=== PATIENT | female | born 1980 | race American Indian/Alaskan Native ===

== ENCOUNTER 2016-07-09 08:35 | Emergency (ER) | payer SELFPAY ==
[2016-07-09 09:38] LABS: Chloride 99.7 mmol/L (98-107); Potassium 3.3 mmol/L (3.6-5.0); Sodium 135 mmol/L (137-145)
[2016-07-09 09:39] LABS: Anion Gap 18 mmol/L; BUN/Creatinine Ratio 8.33; Blood Urea Nitrogen 5 mg/dL (7-17); Calcium 9.1 mg/dL (8.4-10.2); Carbon Dioxide 21 mmol/L (22-30); Glucose 92 mg/dL (65-100)
--- NOTE | 2016-07-09 09:48 | Emergency Department Report ---
Entered by KENNEY WAYNE, acting as scribe for EMILY FREEMAN PA. Chief Complaint: Dizziness Stated Complaint: X 4 WKS/FEVER/DIZZINESS/VOMITING Time Seen by Provider: 07/09/16 09:14 - HPI History of Present Illness: Patient that is 6 weeks presents to the ED c/o fever, vomiting, dizziness, nausea, and back pain. Denies vaginal bleeding, discharge, and abdominal pain. . 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 - ROS Review of Systems: All system are negative unless stated in HPI above. - Exam Vital Signs: Vital Signs 07/09/16 08:54 Temperature 98.5 F Pulse Rate 112 H Respiratory 20 Rate Blood Pressure 138/88 O2 Sat by Pulse 100 Oximetry Physical Exam: General: well nourished, well deverloped, nontoxic in appearance, in no acute distress Abdomen: soft, nontender, nondistended. No guarding. No rebound. Back: no CVA tenderness MSE screening note: Focused history and physical exam performed. Due to findings the following was ordered: ED Medical Decision Making - Lab Data Result diagrams: 07/09/16 09:03 - Medical Decision Making Medical decision making: Patient seen by provider in triage area. Appropriate protocol activated and patient to main ED to be seen by physician. ED Disposition for MSE Condition: Stable This documentation as recorded by the scribe,KENNEY WAYNE,accurately reflects the service I personally performed and the decisions made by ,EMILY FREEMAN PA.
[2016-07-09 09:49] LABS: Basophils % (Auto) 0.3 % (0.0-1.8); Eosinophils % (Auto) 0.4 % (0.0-4.3); Hematocrit 35.4 % (30.3-42.9); Hemoglobin 11.2 gm/dl (10.1-14.3); Mean Corpuscular HGB Conc 32 % (30-34); Mean Corpuscular Volume 77 fl (79-97); Platelet Count 354 K/mm3 (140-440); Red Blood Count 4.62 M/mm3 (3.65-5.03); White Blood Count 7.6 K/mm3 (4.5-11.0)
[2016-07-09 09:54] LABS: Mean Corpuscular Hemoglobin 24 pg (28-32)
[2016-07-09 10:00] LABS: Bacteria,Urine 1+ /HPF (Negative); Bilirubin,Urine NEG (Negative); Blood,Urine NEG (Negative); Ketones,Urine TR mg/dL (Negative); Leukocyte Esterase,Urine TR (Negative); Mucus,Urine 3+ /HPF; Nitrite,Urine NEG (Negative)
[2016-07-09] MEDS ORDERED: NACL 0.9% 1000 ML 1,000 ML IV ONE (10:21)
[2016-07-09] MEDS ORDERED: ZOFRAN IV ONE (10:21)
--- NOTE | 2016-07-09 11:07 | Emergency Department Report ---
HPI - General Chief Complaint: Nausea/Vomiting/Diarrhea Time Seen by Provider: 07/09/16 09:14 - HPI HPI: She is a 36-year-old female 6 para 5004 currently at 6 weeks and 5 days based on last menstrual period of 05/23/2016 with a VIOLET of 2016. Patient states for the past one week she has been having daily morning nausea vomiting with no appetite for food. Patient states it is ago she began to get intermittent dizziness at night. Patient denies any dizziness today. Vision admits frequent urination. She denies fevers/chills/abdominal pain/vaginal discharge such vaginal bleeding/ headache/blurred vision. ED Past Medical Hx - Past Medical History Previous Medical History?: Yes Additional medical history: Vaginal delivery x 5 - Surgical History Past Surgical History?: No - Social History Smoking Status: Never Smoker Substance Use Type: None - Medications Home Medications: Home Medications Medication Instructions Recorded Confirmed Last Taken Type Doxylamine/Pyridoxine HCl 2 each PO QHS #30 tablet. 07/09/16 Unknown Rx [Manjula Jasso 10-10 mg Tablet] Nitrofurantoin Morris/M-Cryst 100 mg PO Q12HR #14 capsule 07/09/16 Unknown Rx [Macrobid CAP] Pnv95/Ferrous Fumarate/FA 1 each PO DAILY #30 tablet 07/09/16 Unknown Rx [ Formula Tablet] ED Review of Systems ROS: Stated complaint: X 4 WKS/FEVER/DIZZINESS/VOMITING Other details as noted in HPI Constitutional: denies: chills, fever Eyes: denies: eye pain, eye discharge, vision change ENT: denies: ear pain, throat pain, dental pain, hearing loss Respiratory: denies: cough, shortness of breath, wheezing Cardiovascular: denies: chest pain, palpitations Endocrine: no symptoms reported Gastrointestinal: nausea, vomiting. denies: abdominal pain, diarrhea Genitourinary: frequency. denies: urgency, dysuria, hematuria, discharge Musculoskeletal: denies: back pain, joint swelling, arthralgia Skin: denies: rash, lesions Neurological: denies: headache, weakness, numbness, paresthesias Psychiatric: denies: anxiety, depression Hematological/Lymphatic: denies: easy bleeding, easy bruising Physical Exam - Physical Exam Vital Signs: Vital Signs 07/09/16 08:54 Temperature 98.5 F Pulse Rate 112 H Respiratory 20 Rate Blood Pressure 138/88 O2 Sat by Pulse 100 Oximetry Physical Exam: GENERAL: Alert and oriented x3, no apparent distress, Normal Gait, atraumatic. HEAD: Head is normocephalic and a-traumatic. EYES: Extra ocular muscles are intact. Pupils are equal, round, and reactive to light and accommodation. EARS: symetrical, atraumatic, non tender, ear canal clear and moderate cerumen, tympanic membrance non inflamed. gross auditory nml bilaterally. NECK: Supple. Non edematous, No carotid bruits. No lymphadenopathy or thyromegaly. No C-spine tenderness LUNGS: Symetrical with respiration, No wheezing, no rales or crackles, CTAB. HEART: S1, S2 present, regular rate and rhythm without murmur, no rubs, no gallops. ABDOMEN: No organomegaly was noted,Positive bowel sounds, soft, and non- distended. . Nontender to palpation on all Quadrants, NO CVA tenderness. NEUROLOGIC: No focal Deficit, Cranial nerves II through XII are grossly intact. No loss of sensation, PSYCHIATRIC: Mood is congruent with affect, denies suicidal or homicidal ideations. SKIN: Warm and dry, No lesions, No ulceration or induration present. ED Course Vital Signs 07/09/16 08:54 Temperature 98.5 F Pulse Rate 112 H Respiratory 20 Rate Blood Pressure 138/88 O2 Sat by Pulse 100 Oximetry ED Medical Decision Making - Lab Data Result diagrams: 07/09/16 09:03 07/09/16 09:03 - Medical Decision Making 36-year-old female with positive with urinary tract infection ED course: Patient received 1 L of normal saline with Zofran. CBC normal limit, BMP shows low BUN/creatinine and mildly low sodium and chloride. Urinalysis shows positive bacteria suggestive for UTI Beta Quant level 53,000+. Ultrasound not required as patient denies pelvic pain abdominal pain or any vaginal bleed. Discussed findings with patient. She reports feeling much better. Vital signs stable. Vital signs returned to normal Discussed with patient daily vitamins and Diclegis for nausea. Discussed the patient referral for SHOWER DOORS AND PANELS FABRICATOR for visit. Patient states she will follow-up for care. She is in no acute or respiratory distress. Critical care attestation.: If time is entered above; I have spent that time in minutes in the direct care of this critically ill patient, excluding procedure time. ED Disposition Clinical Impression: UTI (urinary tract infection) in in first trimester, Nausea and vomiting during Disposition: DISCHARGED TO HOME OR SELFCARE Is pt being admited?: No Does the pt Need Aspirin: No Condition: Stable Instructions: Morning Sickness (ED), (ED), Urinary Tract Infection in Women (ED), Regular Diet (ED) Additional Instructions: Increase her water intake to 8-10 glasses per day. eat small frequent meals periodically throughout the day. take daily vitamins and dad clenches for nausea. despite no appetite patient should eat 3-5 daily Follow-up with curtain inspector as referred Prescriptions: Doxylamine/Pyridoxine HCl [Manjula Jasso 10-10 mg Tablet] 2 each PO QHS #30 tablet. Nitrofurantoin Morris/M-Cryst [Macrobid CAP] 100 mg PO Q12HR #14 capsule Pnv95/Ferrous Fumarate/FA [ Formula Tablet] 1 each PO DAILY #30 tablet Referrals: PRIMARY CAREMD [Primary Care Provider] - 3-5 Days MYESHA NARANJO MD [Referring] - 3-5 Days BRANDON ACEVES MD [Referring] - 3-5 Days [facility] [Outside] - 3-5 Days [facility] [Outside] - 3-5 Days Forms: Work/School Release Form(ED)
[2016-07-09 12:05] VITALS: BP 99/62
== END 2016-07-09 12:57 | disposition home or self-care (01) ==
LOC: ED 08:35
DX: O23.41 Unspecified infection of urinary tract in pregnancy, first trimester (principal); O21.9 Vomiting of pregnancy, unspecified; R11.0 Nausea; Z3A.01 Less than 8 weeks gestation of pregnancy
CPT/HCPCS: 36415; 80048; 81001; 81025; 84702; 85025; 93005; 93010; 96361; 96374; 99283; J2405; J7030

== ENCOUNTER 2017-03-19 09:02 | Emergency (ER) | payer OTHER ==
[2017-03-19 09:11] VITALS: BP 124/88
--- NOTE | 2017-03-19 18:03 | Emergency Department Report ---
- General Chief Complaint: Laceration/Recheck/Suture Stated Complaint: POST OP INCISION OPEN Time Seen by Provider: 03/19/17 17:49 Source: patient Mode of arrival: Ambulatory Limitations: No Limitations - History of Present Illness Initial Comments: Patient with on 02/26/17 and reportedly was initially on antibiotics. She finish antibiotics last but the incision site has been open for the last 2 weeks but the drainage has had a bad odor for 2 days. No nausea or vomiting. No abdominal pain. No fevers. Has not been dizzy or light-headed. Dr. Herman is her TOWER OBSERVER. -: Gradual, days(s) (2) Location: abdomen Place: home Context: other (Post-op from ) Associated Symptoms: none, other (drainage with odor) - Related Data Previous Rx's Medication Instructions Recorded Last Taken Type Doxylamine Succinate/Vit B6 2 each PO QHS #30 tablet. 07/09/16 Unknown Rx [Diclegis Dr 10-10 mg Tablet] Nitrofurantoin White/M-Cryst 100 mg PO Q12HR #14 capsule 07/09/16 Unknown Rx [Macrobid CAP] Pnv No.95/Ferrous Fum/Folic AC 1 each PO DAILY #30 tablet 07/09/16 Unknown Rx [ Formula Tablet] Cephalexin [Keflex] 500 mg PO Q8HR 10 Days #30 cap 03/19/17 Unknown Rx Allergies Allergy/AdvReac Type Severity Reaction Status Date / Time No Known Allergies Allergy Unverified 07/09/16 08:54 ED Review of Systems ROS: Stated complaint: POST OP INCISION OPEN Other details as noted in HPI Constitutional: denies: chills, fever Eyes: denies: eye pain, eye discharge, vision change ENT: denies: ear pain, throat pain Respiratory: denies: cough, shortness of breath, wheezing Cardiovascular: denies: chest pain, palpitations Endocrine: no symptoms reported Gastrointestinal: denies: abdominal pain, nausea, diarrhea Genitourinary: denies: urgency, dysuria, discharge Musculoskeletal: denies: back pain, joint swelling, arthralgia Skin: denies: rash, lesions Neurological: denies: headache, weakness, paresthesias Psychiatric: denies: anxiety, depression Hematological/Lymphatic: denies: easy bleeding, easy bruising ED Past Medical Hx - Past Medical History Previous Medical History?: No Additional medical history: Vaginal delivery x 5 - Surgical History Past Surgical History?: Yes Additional Surgical History: c section 2017 - Social History Smoking Status: Never Smoker Substance Use Type: None - Medications Home Medications: Home Medications Medication Instructions Recorded Confirmed Last Taken Type Doxylamine Succinate/Vit B6 2 each PO QHS #30 tablet. 07/09/16 Unknown Rx [Diclegis Dr 10-10 mg Tablet] Nitrofurantoin White/M-Cryst 100 mg PO Q12HR #14 capsule 07/09/16 Unknown Rx [Macrobid CAP] Pnv No.95/Ferrous Fum/Folic AC 1 each PO DAILY #30 tablet 07/09/16 Unknown Rx [ Formula Tablet] Cephalexin [Keflex] 500 mg PO Q8HR 10 Days #30 cap 03/19/17 Unknown Rx ED Physical Exam - General Limitations: No Limitations General appearance: alert, in no apparent distress - Head Head exam: Present: atraumatic, normocephalic - Eye Eye exam: Present: normal appearance - ENT ENT exam: Present: mucous membranes moist - Neck Neck exam: Present: normal inspection - Respiratory Respiratory exam: Present: normal lung sounds bilaterally. Absent: respiratory distress - Cardiovascular Cardiovascular Exam: Present: regular rate, normal rhythm. Absent: systolic murmur, diastolic murmur, rubs, gallop - GI/Abdominal GI/Abdominal exam: Present: soft (Non-tender. ), normal bowel sounds - Extremities Exam Extremities exam: Present: normal inspection - Back Exam Back exam: Present: normal inspection - Neurological Exam Neurological exam: Present: alert, oriented X3 - Psychiatric Psychiatric exam: Present: normal affect, normal mood - Skin Skin exam: Present: warm, dry, intact, normal color, other (Open incision site in the middle 1 cm and right lateral 2 cm with good granulation tissue and no erythema. drainage was minimal and serous but there was a bad odor from wound.) . Absent: rash ED Course Vital Signs 03/19/17 09:06 Temperature 98.6 F Pulse Rate 92 H Respiratory 16 Rate Blood Pressure 124/88 O2 Sat by Pulse 99 Oximetry ED Medical Decision Making - Medical Decision Making Patient with post-op incision site wound but does not appear to be significantly infected. Will do keflex with the foul odor and she will follow up with Dr. Herman. Critical care attestation.: If time is entered above; I have spent that time in minutes in the direct care of this critically ill patient, excluding procedure time. ED Disposition Clinical Impression: Cellulitis, abdominal wall Disposition: DC-01 TO HOME OR SELFCARE Is pt being admited?: No Does the pt Need Aspirin: No Condition: Stable Instructions: Cellulitis (ED) Prescriptions: Cephalexin [Keflex] 500 mg PO Q8HR 10 Days #30 cap Referrals: LUCIA HERMAN MD [Staff Physician] - 3-5 Days Time of Disposition: 18:12
== END 2017-03-19 18:15 | disposition home or self-care (01) ==
LOC: ED 09:02
DX: L03.311 Cellulitis of abdominal wall (principal)
CPT/HCPCS: 99281

== ENCOUNTER 2017-03-25 08:24 | Outpatient (CLI) | payer OTHER ==
--- NOTE | 2017-03-25 14:10 | Cat Scan Report ---
FINAL REPORT EXAM: CT ABDOMEN PELVIS W CON HISTORY: ENCOUNTER FOR PLANNED POST OP WOUND CLOSURE TECHNIQUE: CT of the abdomen and pelvis was performed with intravenous contrast. Subsequently, CT of the abdomen and pelvis was performed in the delayed phase. Reconstructions were included in the coronal and sagittal planes. PRIORS: None. FINDINGS: Lower thorax: The lung bases are clear. The visualized portions of the heart are normal. Liver: The liver is normal in attenuation. No intrahepatic biliary duct dilation. No focal hepatic lesions. Gallbladder/ biliary system: Cholelithiasis is seen. No gallbladder wall thickening or pericholecystic fluid. The common bile duct appears nondilated. Spleen: No splenic lesions are seen. Pancreas: No pancreatic lesions are seen. No pancreatic duct dilation. Kidneys: No renal masses, cysts or hydronephrosis. No renal or ureteral calcifications. Adrenal glands: 1.4 centimeter nonspecific left adrenal gland lesion is seen. No right adrenal lesions. Vasculature: The abdominal aorta is nondilated. Lymph nodes: No enlarged lymph nodes are seen in the abdomen or pelvis. Bowel, mesentery, peritoneum: No bowel obstruction. No free fluid or free air. The appendix is normal. No colonic diverticulosis. No bowel wall thickening. Urinary bladder: No filling defects are seen. Pelvis: The uterus appears mildly enlarged. Fluid is seen within the endometrial canal. Abdominal wall: There is a focal fluid collection with peripheral enhancement in the subcutaneous tissues along anterior aspect of the pelvis measuring 10.0 centimeters transverse by 1.4 centimeters AP by 4.6 centimeters craniocaudal. No intra-abdominal extension is seen. Bones: Degenerative changes are seen in the spine. IMPRESSION: 1. Abscess in the subcutaneous tissues of the anterior aspect of the pelvis, likely in the region of a incision. 2. Nonspecific left adrenal lesion should be further evaluated with dedicated adrenal CT or MRI. 3. Cholelithiasis.
== END 2017-03-25 08:25 | disposition home or self-care (01) ==
LOC: CT 08:24
PROVIDERS: ATTEND Obstetrics & Gynecology
DX: Z48.1 Encounter for planned postprocedural wound closure (principal); K80.20 Calculus of gallbladder without cholecystitis without obstruction; L02.818 Cutaneous abscess of other sites; E27.8 Other specified disorders of adrenal gland; M47.899 Other spondylosis, site unspecified; Z90.710 Acquired absence of both cervix and uterus
CPT/HCPCS: 74177; Q9967

== ENCOUNTER 2017-04-08 09:39 | Outpatient (CLI) | payer OTHER ==
[2017-04-08] MEDS ORDERED: XYLOCAINE TOPICAL 4% TP ONE (10:39)
== END 2017-04-08 09:40 | disposition home or self-care (01) ==
LOC: WOUND 09:39
PROVIDERS: ATTEND Internal Medicine
DX: T81.89XA Other complications of procedures, not elsewhere classified, initial encounter (principal); E66.01 Morbid (severe) obesity due to excess calories; Z68.41 Body mass index [BMI] 40.0-44.9, adult; Y83.8 Other surgical procedures as the cause of abnormal reaction of the patient, or of later complication, without mention of misadventure at the time of the procedure; Y92.89 Other specified places as the place of occurrence of the external cause
CPT/HCPCS: 99215; G0463

== ENCOUNTER 2017-04-08 11:43 | Emergency (ER) | payer SELFPAY ==
[2017-04-08 12:10] VITALS: BP 139/94
[2017-04-08] MEDS ORDERED: NACL 0.9% 1000 ML 1,000 ML IV ONE (13:16)
[2017-04-08 13:45] LABS: Basophils # (Auto) 0.1 K/mm3 (0.0-0.1); Basophils % (Auto) 0.9 % (0.0-1.8); Eosinophils # (Auto) 0.1 K/mm3 (0.0-0.4); Eosinophils % (Auto) 1.2 % (0.0-4.3); Hematocrit 36.1 % (30.3-42.9); Hemoglobin 11.9 gm/dl (10.1-14.3); Lymphocytes # (Auto) 2.6 K/mm3 (1.2-5.4); Lymphocytes % (Auto) 37.3 % (13.4-35.0); Mean Corpuscular HGB Conc 33 % (30-34); Mean Corpuscular Volume 77 fl (79-97); Monocytes # (Auto) 0.5 K/mm3 (0.0-0.8); Monocytes % (Auto) 7.8 % (0.0-7.3); Platelet Count 272 K/mm3 (140-440); Red Blood Count 4.67 M/mm3 (3.65-5.03)
[2017-04-08 13:56] LABS: INR 0.89 (0.87-1.13)
[2017-04-08 13:57] LABS: Mean Corpuscular Hemoglobin 26 pg (28-32)
--- NOTE | 2017-04-08 13:58 | XRay Report ---
AP CHEST: HISTORY: Fever, sepsis AP view of the chest demonstrates a normal mediastinal and cardiac contour with clear lungs and normal bony and soft tissue structures. IMPRESSION: Unremarkable AP chest.
[2017-04-08 14:07] LABS: Alanine Aminotransferase 20 units/L (7-56); Albumin 4.4 g/dL (3.9-5); BUN/Creatinine Ratio 25; Blood Urea Nitrogen 15 mg/dL (7-17); Calcium 9.5 mg/dL (8.4-10.2); Hemolysis Index 2; Lipase 19 units/L (13-60)
[2017-04-08 14:28] LABS: Bilirubin,Direct < 0.2 mg/dL (0-0.2)
--- NOTE | 2017-04-08 15:08 | Cat Scan Report ---
CT ABDOMEN PELVIS WITH CONTRAST: HISTORY: Intra-abdominal abscess. COMPARISON: 03/25/17. TECHNIQUE: Helical CT in 1.25mm intervals following IV contrast. Sagittal and coronal reconstructions. FINDINGS: Lung bases: Normal. Liver: Normal. Biliary system: Multiple gallstones are identified within the gallbladder. No biliary dilatation or inflammation. Pancreas: Normal. Spleen: Normal. Kidneys/ureters/bladder: Normal. Adrenal glands: Normal. Aorta: Normal. Intestines: Normal. Appendix: Normal. Pelvic viscera: Normal. Ascites: None. Adenopathy: None. Musculoskeletal: The fluid collection in the anterior pelvic wall has decreased by at least 75% in size and measures 6 cm transverse and 0.8 cm AP and contains trace gas on today's exam. No new fluid collection is appreciated. No intra-abdominal component. IMPRESSION: The fluid collection in the anterior pelvic wall has improved significantly since 03/25/17. Cholelithiasis..
[2017-04-08] MEDS: ZOSYN/NS 4.5GM/100ML 4.5 GM/100 ML VIAL IV ONE (15:22)
--- NOTE | 2017-04-08 18:09 | Emergency Department Report ---
ED General Adult HPI - General Chief complaint: Skin/Abscess/Foreign Body Stated complaint: ABCESS Time Seen by Provider: 04/08/17 13:09 Source: patient Mode of arrival: Ambulatory Limitations: No Limitations - History of Present Illness Initial comments: Patient was sent to the emergency department for evaluation for possible surgical drainage of a pelvic wall abscess status post . She is an ordinary patient of Dr. Bucky Herman. A patient of the wound care clinic. She reports to me that she has had no recent fever or chills. Eyes not entirely sure why care nurse decided that "patient had the abscess and needs to go to surgery.". Dr. Herman did not call to advise this case. According to the triage surgeon tried to directly admit the patient but no beds were available. The wound has very dressed by the nurse. Patient had a CT of her abdomen and pelvis on 03/25/2017 which showed an abscess in the subcutaneous tissues of the anterior aspect of the pelvis with no intra-abdominal fluid collection. She has incidental cholelithiasis. The patient herself is not complaining of pain, fever or chills. She has no other systemic symptoms. She does not complain of abdominal pain nor nausea or vomiting. Her was in February. -: week(s) Treatments Prior to Arrival: other (above-described) - Related Data Previous Rx's Medication Instructions Recorded Last Taken Type Sulfamethoxazole/Trimethoprim 1 each PO BID #20 tablet 04/08/17 Unknown Rx [Bactrim DS TAB] Allergies Allergy/AdvReac Type Severity Reaction Status Date / Time No Known Allergies Allergy Verified 04/08/17 12:07 ED Review of Systems ROS: Stated complaint: ABCESS Other details as noted in HPI Constitutional: denies: chills, fever Eyes: denies: eye pain, eye discharge, vision change ENT: denies: ear pain, throat pain Respiratory: denies: cough, shortness of breath, wheezing Cardiovascular: denies: chest pain, palpitations Endocrine: no symptoms reported Gastrointestinal: denies: abdominal pain, nausea, diarrhea Genitourinary: denies: urgency, dysuria, discharge Musculoskeletal: denies: back pain, joint swelling, arthralgia Skin: denies: rash, lesions Neurological: denies: headache, weakness, paresthesias Psychiatric: denies: anxiety, depression Hematological/Lymphatic: denies: easy bleeding, easy bruising ED Past Medical Hx - Past Medical History Previous Medical History?: No Additional medical history: Vaginal delivery x 5 - Surgical History Additional Surgical History: c section 2017 - Social History Smoking Status: Never Smoker Substance Use Type: None - Medications Home Medications: Home Medications Medication Instructions Recorded Confirmed Last Taken Type Sulfamethoxazole/Trimethoprim 1 each PO BID #20 tablet 04/08/17 Unknown Rx [Bactrim DS TAB] ED Physical Exam - General Limitations: No Limitations General appearance: alert, in no apparent distress - Head Head exam: Present: atraumatic, normocephalic - Eye Eye exam: Present: normal appearance - ENT ENT exam: Present: mucous membranes moist - Neck Neck exam: Present: normal inspection - Respiratory Respiratory exam: Present: normal lung sounds bilaterally. Absent: respiratory distress - Cardiovascular Cardiovascular Exam: Present: regular rate, normal rhythm. Absent: systolic murmur, diastolic murmur, rubs, gallop - GI/Abdominal GI/Abdominal exam: Present: soft, normal bowel sounds, other (there is a small dressing which I assume covers a packing in the infra pannicular suprapubic area of the pelvis. I don't see any erythema nor any evidence of draining pus.) . Absent: distended, tenderness, guarding, rebound, rigid - Extremities Exam Extremities exam: Present: normal inspection - Back Exam Back exam: Present: normal inspection. Absent: CVA tenderness (R), CVA tenderness (L) - Neurological Exam Neurological exam: Present: alert, oriented X3, CN II-XII intact. Absent: motor sensory deficit - Psychiatric Psychiatric exam: Present: normal affect, normal mood - Skin Skin exam: Present: warm, dry, intact, normal color. Absent: rash ED Course Vital Signs 04/08/17 12:07 Temperature 98.4 F Pulse Rate 88 Respiratory 18 Rate Blood Pressure 139/94 O2 Sat by Pulse 100 Oximetry - Reevaluation(s) Reevaluation #1: Patient was given a dose of IV antibiotics. She is sent for a CT. According to the CT "fluid collection in the anterior pelvic wall has decreased by at least 75% in size and measures 6 cm transverse and 0.8 cm AP and contains trace gas on today examination noted fluid collection no associated intra-abdominal component." 04/08/17 18:14 Reevaluation #2: Dr. Bowie was called and consulted. He came to the emergency department as well as the patient. He stated that the patient was appropriate for outpatient disposition. She does not need a surgical procedure at this time. I will give her a prescription for Bactrim DS. This has been discussed with Dr. Bowie. 04/08/17 18:15 04/08/17 18:19 ED Medical Decision Making - Lab Data Result diagrams: 04/08/17 13:25 04/08/17 13:25 Laboratory Results - last 24 hr 04/08/17 04/08/17 04/08/17 13:25 13:25 13:25 WBC 6.9 RBC 4.67 Hgb 11.9 Hct 36.1 MCV 77 L MCH 26 L MCHC 33 RDW 15.0 Plt Count 272 Lymph % (Auto) 37.3 H [place] % (Auto) 7.8 H Eos % (Auto) 1.2 Baso % (Auto) 0.9 Lymph # 2.6 [place] # 0.5 Eos # 0.1 Baso # 0.1 Seg Neutrophils % 52.8 Seg Neutrophils # 3.6 PT 12.5 INR 0.89 Sodium 138 Potassium 4.2 Chloride 98.8 Carbon Dioxide 26 Anion Gap 17 BUN 15 Creatinine 0.6 L Estimated GFR > 60 BUN/Creatinine Ratio 25 Glucose 84 Lactic Acid Calcium 9.5 Total Bilirubin < 0.20 Direct Bilirubin < 0.2 AST 23 ALT 20 Alkaline Phosphatase 57 Total Protein 8.9 H Albumin 4.4 Albumin/Globulin Ratio 1.0 Lipase 19 04/08/17 13:25 WBC RBC Hgb Hct MCV MCH MCHC RDW Plt Count Lymph % (Auto) [place] % (Auto) Eos % (Auto) Baso % (Auto) Lymph # [place] # Eos # Baso # Seg Neutrophils % Seg Neutrophils # PT INR Sodium Potassium Chloride Carbon Dioxide Anion Gap BUN Creatinine Estimated GFR BUN/Creatinine Ratio Glucose Lactic Acid 1.10 Calcium Total Bilirubin Direct Bilirubin AST ALT Alkaline Phosphatase Total Protein Albumin Albumin/Globulin Ratio Lipase Critical care attestation.: If time is entered above; I have spent that time in minutes in the direct care of this critically ill patient, excluding procedure time. ED Disposition Clinical Impression: Subcutaneous abscess Qualifiers: Site of cutaneous abscess of trunk: abdominal wall Disposition: DC- TO HOME OR SELFCARE Is pt being admited?: No Does the pt Need Aspirin: No Condition: Stable Instructions: Abscess (ED) Additional Instructions: Your pelvic abscess is improving. We are going to place her on an additional antibiotic. See the wound care nurse tomorrow. Follow-up with Dr. Herman as well. Return fever or if you feel sick or any acute change or problems. Prescriptions: Sulfamethoxazole/Trimethoprim [Bactrim DS TAB] 1 each PO BID #20 tablet Referrals: PRIMARY CARE, [Primary Care Provider] - 3-5 Days Time of Disposition: 18:18
== END 2017-04-08 18:55 | disposition home or self-care (01) ==
LOC: ED 11:43
DX: T81.89XA Other complications of procedures, not elsewhere classified, initial encounter (principal); L02.211 Cutaneous abscess of abdominal wall; Y83.8 Other surgical procedures as the cause of abnormal reaction of the patient, or of later complication, without mention of misadventure at the time of the procedure; Y92.89 Other specified places as the place of occurrence of the external cause
CPT/HCPCS: 36415; 71045; 74177; 80048; 80074; 82140; 83690; 85025; 85610; 87040; 96361; 96365; 99284; J2543; J7030; Q9967

== ENCOUNTER 2017-04-10 08:08 | Outpatient (CLI) | payer OTHER | END 2017-04-10 08:09 | disposition home or self-care (01) | LOC: WOUND 08:08 | PROVIDERS: ATTEND Surgery | DX: T81.89XD Other complications of procedures, not elsewhere classified, subsequent encounter (principal); E66.01 Morbid (severe) obesity due to excess calories; Z68.41 Body mass index [BMI] 40.0-44.9, adult; Y83.8 Other surgical procedures as the cause of abnormal reaction of the patient, or of later complication, without mention of misadventure at the time of the procedure ==

== ENCOUNTER 2017-04-15 08:03 | Outpatient (CLI) | payer OTHER ==
[2017-04-15] MEDS ORDERED: XYLOCAINE TOPICAL 4% TP ONE ×2 (08:28→08:46)
== END 2017-04-15 08:04 | disposition home or self-care (01) ==
LOC: WOUND 08:03
PROVIDERS: ATTEND Internal Medicine
DX: T81.89XD Other complications of procedures, not elsewhere classified, subsequent encounter (principal); E66.01 Morbid (severe) obesity due to excess calories; Z68.41 Body mass index [BMI] 40.0-44.9, adult; Y83.8 Other surgical procedures as the cause of abnormal reaction of the patient, or of later complication, without mention of misadventure at the time of the procedure

== ENCOUNTER 2017-04-22 08:11 | Outpatient (CLI) | payer OTHER ==
[2017-04-22] MEDS ORDERED: XYLOCAINE TOPICAL 4% TP ONE ×2 (08:23→08:29)
== END 2017-04-22 08:12 | disposition home or self-care (01) ==
LOC: WOUND 08:11
PROVIDERS: ATTEND Internal Medicine
DX: T81.89XD Other complications of procedures, not elsewhere classified, subsequent encounter (principal); E66.01 Morbid (severe) obesity due to excess calories; Z68.41 Body mass index [BMI] 40.0-44.9, adult; Y83.8 Other surgical procedures as the cause of abnormal reaction of the patient, or of later complication, without mention of misadventure at the time of the procedure

== ENCOUNTER 2017-04-29 08:03 | Outpatient (CLI) | payer OTHER ==
[2017-04-29] MEDS ORDERED: XYLOCAINE TOPICAL 4% TP ONE ×2 (08:30→08:31)
== END 2017-04-29 08:04 | disposition home or self-care (01) ==
LOC: WOUND 08:03
PROVIDERS: ATTEND Internal Medicine
DX: T81.89XD Other complications of procedures, not elsewhere classified, subsequent encounter (principal); E66.01 Morbid (severe) obesity due to excess calories; Z68.41 Body mass index [BMI] 40.0-44.9, adult; Y83.8 Other surgical procedures as the cause of abnormal reaction of the patient, or of later complication, without mention of misadventure at the time of the procedure

== ENCOUNTER 2017-05-06 07:58 | Outpatient (CLI) | payer OTHER ==
[2017-05-06] MEDS ORDERED: XYLOCAINE TOPICAL 2% 5ML ONE (08:15)
[2017-05-06] MEDS ORDERED: XYLOCAINE TOPICAL 2% 5ML TP ONE (08:21)
== END 2017-05-06 07:59 | disposition home or self-care (01) ==
LOC: WOUND 07:58
PROVIDERS: ATTEND Internal Medicine
DX: T81.89XD Other complications of procedures, not elsewhere classified, subsequent encounter (principal); E66.01 Morbid (severe) obesity due to excess calories; Z68.41 Body mass index [BMI] 40.0-44.9, adult; Y83.8 Other surgical procedures as the cause of abnormal reaction of the patient, or of later complication, without mention of misadventure at the time of the procedure

== ENCOUNTER 2017-05-13 08:21 | Outpatient (CLI) | payer MEDICAID, OTHER ==
[2017-05-13] MEDS ORDERED: XYLOCAINE TOPICAL 2% 5ML ONE (08:31)
[2017-05-13] MEDS ORDERED: XYLOCAINE TOPICAL 2% 5ML TP ONE (09:08)
== END 2017-05-13 08:22 | disposition home or self-care (01) ==
LOC: WOUND 08:21
PROVIDERS: ATTEND Internal Medicine
DX: T81.89XD Other complications of procedures, not elsewhere classified, subsequent encounter (principal); E66.01 Morbid (severe) obesity due to excess calories; Z68.41 Body mass index [BMI] 40.0-44.9, adult; Y83.8 Other surgical procedures as the cause of abnormal reaction of the patient, or of later complication, without mention of misadventure at the time of the procedure

== ENCOUNTER 2017-05-20 08:13 | Outpatient (CLI) | payer OTHER | END 2017-05-20 08:14 | disposition home or self-care (01) | LOC: WOUND 08:13 | PROVIDERS: ATTEND Internal Medicine | DX: T81.89XD Other complications of procedures, not elsewhere classified, subsequent encounter (principal); E66.01 Morbid (severe) obesity due to excess calories; Z68.41 Body mass index [BMI] 40.0-44.9, adult; Y83.8 Other surgical procedures as the cause of abnormal reaction of the patient, or of later complication, without mention of misadventure at the time of the procedure ==

== ENCOUNTER 2017-05-27 08:13 | Outpatient (CLI) | payer MEDICAID ==
[2017-05-27] MEDS ORDERED: XYLOCAINE TOPICAL 4% TP ONE (08:24)
[2017-05-27] MEDS ORDERED: SILVER NITRATE TP ONE (08:37)
== END 2017-05-27 08:14 | disposition home or self-care (01) ==
LOC: WOUND 08:13
PROVIDERS: ATTEND Internal Medicine
DX: T81.89XD Other complications of procedures, not elsewhere classified, subsequent encounter (principal); E66.01 Morbid (severe) obesity due to excess calories; Z68.41 Body mass index [BMI] 40.0-44.9, adult; Y83.8 Other surgical procedures as the cause of abnormal reaction of the patient, or of later complication, without mention of misadventure at the time of the procedure
CPT/HCPCS: 17250; G0463

== ENCOUNTER 2017-06-10 08:04 | Outpatient (CLI) | payer SELFPAY | END 2017-06-10 08:05 | disposition home or self-care (01) | LOC: WOUND 08:04 | PROVIDERS: ATTEND Internal Medicine | DX: T81.89XD Other complications of procedures, not elsewhere classified, subsequent encounter (principal); E66.01 Morbid (severe) obesity due to excess calories; Z68.41 Body mass index [BMI] 40.0-44.9, adult; Y83.8 Other surgical procedures as the cause of abnormal reaction of the patient, or of later complication, without mention of misadventure at the time of the procedure | CPT/HCPCS: 82962; G0463; 99211 ==